=== PATIENT | female | born 1985 | race Hispanic/Latino ===

== ENCOUNTER 2020-02-13 06:07 | Inpatient (IN) | payer OTHER, SELFPAY ==
[2020-02-13] VITALS (17 sets, daily range): BP systolic 100–133; BP diastolic 59–98; PULSE 64–116; RESP 16; TEMP 36.6–36.8; O2SAT 100; BMI 34.0
--- NOTE | 2020-02-13 06:24 | PM.IMHP ---
H&P: HPI History of Present Illness Date/Time: 02/13/20 06:24 Chief complaint: Induction of Labor Narrative: Vicki Corrigan is a 34 year old female is admitted for for medical induction of labor. Her last menstrual period was 05/11/2019, EDC is 02/15 20. Making her a short a 40 weeks gestation. Her cervix is favorable. She is negative for group B strep Review of Systems Review of Systems: All systems reviewed & are unremarkable except as noted in HPI and below PMFSH Family History Family History Other No pertinent family history Social History Social History Substance use: never Gender identity (if verbalized by the patient): Female Spiritual care concerns: No Meds Home Medications and Allergies Home Medications Medication Instructions Recorded Confirmed Type PNV cmb#95-ferrous fumarate-FA 1 tablet PO DAILY 01/30/20 01/30/20 History [] Allergies Allergy/AdvReac Type Severity Reaction Status Date / Time No Known Allergies Allergy Verified 01/30/20 14:39 Exam Const: General: no acute distress Eyes: General: appearance normal, both eyes and all related structures Neck: Neck: supple and no JVD Thyroid: thyroid normal Resp: Effort & Inspection: normal respiratory effort Auscultation: clear to auscultation bilaterally Cardio: Rate: regular rate Rhythm: regular rhythm GI: Inspection: non-distended GI Palp: Yes Soft to palpation, No Tenderness to palpation present (GI) and No Guarding due to palpation present (GI) Auscultation: normal bowel sounds : Speculum Exam - Cervix: normal appearance of the cervix ( cervix 3cm. FHTs reassuring) Skin: General skin exam: no rashes or lesions noted Extrem: General: normal to inspection and no edema Psych: Mental Status: mental status grossly normal Affect: normal affect Assessment and Plan Additional Plan impression: Term Plan: Medical lateral labor
--- NOTE | 2020-02-13 06:30 | PM.OBPNVD ---
OB - PN: Subj Subjective Date/time seen: 02/13/20 06:30 cx 3-4/75/-1 arom light [facility] fhts ok OB - PN A/P Time Spent With Patient Time: Total time spent is greater than 50% in coordination of care (as documented) at patient's floor/unit and/or counseling patient:
[2020-02-13 06:59] LABS: Basophils Percent Auto 0.1 % (0.2-1.2); Eosinophils Absolute Auto 0.1 K/mm3 (0-0.3); Eosinophils Percent Auto 1.3 % (0-4.4); Hemoglobin 11.4 g/dL (12.0-15.0); Immature Granulocyte Absolute 0.18 K/mm3 (0.00-0.031); Immature Granulocyte Percent A 2.3 % (0-0.5); Lymphocytes Absolute Auto 2.33 K/mm3 (0.9-3.2); Lymphocytes Percent Auto 29.4 % (18.3-44.2); Mean Corpuscular HGB Conc 34.5 g/dl (32-36); Mean Corpuscular Hemoglobin 30.5 pg (26-34); Mean Corpuscular Volume 88.2 fl (80-100); Monocytes Absolute Auto 0.6 K/mm3 (0.1-0.6); Monocytes Percent Auto 6.9 % (2.6-8.5); Neutrophils Absolute Auto 4.8 K/mm3 (1.3-6.7); Platelet Count Result 176 k/mm3 (150-375); Red Blood Count 3.74 M/mm3 (4.2-5.4); Red Cell Distribution Width 13.9 % (11.5-14.5); White Blood Count 7.9 K/mm3 (4.5-10.0)
[2020-02-13] MEDS: LACTATED RINGERS 1,000 ML 125 ML IV CONT (07:10)
[2020-02-13] MEDS: OXYTOCIN 30 UNITS/NS 500 ML 30 UNITS/500 ML BAG IV CONT (07:11)
--- NOTE | 2020-02-13 09:19 | PM.OBPRVD ---
OB - Delivery Note Procedure Delivery date: 02/13/20 Intrapartal events: None Induction method: AROM Delivery augmentation: pitocin Delivery monitor: external FHT Route of delivery: Episiotomy description: None Laceration description: None Specimen: No Estimated blood loss (mL): 57 Anesthesia type: None Disposition: floor Baby Date of : 02/13/20 Time of : 09:09 Weeks of gestation at delivery: 40 Infant gender: Male presentation: vertex position: Right Occiput Anterior Placenta delivery description: Spontaneous cord vessel description: 3 Vessels score one minute: 9 score five minutes: 9
[2020-02-13 10:01] LABS: Rapid Plasma Reagin Non-Reactive (NonReactive)
[2020-02-13] MEDS: OXYTOCIN 30 UNITS/NS 500 ML 30 UNITS/500 ML BAG 125 UNITS IV CONT (10:25)
[2020-02-13] MEDS: METHYLERGONOVINE MALEATE 0.2 MG/ML VIAL IM (10:25)
--- NOTE | 2020-02-13 10:41 | P.PNOB_ITS ---
OB - PN: Subj Subjective Date/time seen: 02/13/20 10:41 patient had an episode of acute bleeding. This was calculated at 300 cc. She responded to adding Pitocin to the IV and at dose of Methergine. Her bleeding is presently okay. We will watch her closely OB - PN: Obj Data Labs CBC & Chem 7: 02/13/20 06:33 Labs: Laboratory Results - last 24 hr 02/13/20 02/13/20 02/13/20 06:33 06:33 06:33 WBC 7.9 RBC 3.74 L Hgb 11.4 L Hct 33.0 L MCV 88.2 MCH 30.5 MCHC 34.5 RDW 13.9 Plt Count 176 MPV 11.0 H Immature Gran % (Auto) 2.3 H Neut % (Auto) 60.0 Lymph % (Auto) 29.4 [place] % (Auto) 6.9 Eos % (Auto) 1.3 Baso % (Auto) 0.1 L Lymph # (Auto) 2.33 [place] # (Auto) 0.6 Eos # (Auto) 0.1 Baso # (Auto) 0.0 Abs Immat Gran (auto) 0.18 H Absolute Neuts (auto) 4.8 Absolute Nucleated RBC 0.0 Nucleated RBC % 0.0 RPR Non-reactive Blood Type O Positive Antibody Screen Negative OB - PN A/P Time Spent With Patient Time: Total time spent is greater than 50% in coordination of care (as documented) at patient's floor/unit and/or counseling patient:
[2020-02-13] MEDS: IBUPROFEN 600 MG TABLET PO ×2 (10:43→17:00)
--- NOTE | 2020-02-13 11:45 | PC.NURSE ---
Patient transferred to post room #287 per wheelchair from labor and delivery. Support person present. Oriented to unit, room, information board, rooming in, admission packet and security measures. Patient verbalizes understanding.
[2020-02-13] MEDS: ACETAMINOPHEN 325 MG TABLET 650 MG PO (12:12)
[2020-02-14] MEDS: IBUPROFEN 600 MG TABLET PO ×2 (05:08→14:35)
[2020-02-14 06:01] LABS: Hematocrit 32.3 % (37.0-47.0)
[2020-02-14] MEDS: DOCUSATE SODIUM 100 MG CAPSULE PO (07:49)
[2020-02-14] MEDS: MULTIVIT/MIN/PREN/FOL AC/IRON TABLET 1 TAB PO (07:49)
[2020-02-14 08:00] VITALS: BP 101/48; PULSE 72; RESP 18; TEMP 36.9; O2SAT 100
--- NOTE | 2020-02-14 12:13 | PM.OBPNVD ---
OB - PN: Subj Subjective Date/time seen: 02/14/20 12:13 Narrative: Pain OK. Would like to go home. OB - PN: Obj Data Labs CBC & Chem 7: 02/14/20 04:20 Labs: Laboratory Results - last 24 hr 02/14/20 04:20 Hgb 11.0 L Hct 32.3 L OB - PN A/P Plan Comments: A: PPD#1, doing well. P: Routine care. Home to f/u 6 weeks. Exam Psych: Other: AVSS ABD soft, nontender, fundus firm EXT nontender
--- NOTE | 2020-02-14 12:14 | PM.OBDSVD ---
DS: Admitting Diagnosis Admitting Diagnosis Admitting Diagnosis: Induction of Labor DS: Discharge Diagnosis Discharge Diagnosis (1) (normal spontaneous vaginal delivery): Code(s): O80 - Encounter for full-term uncomplicated delivery Status: Acute OB - DS: Summary OB Procedures : None OB Procedures Intrapartum: Spontaneous Vag Delivery OB Procedures: : None DS: Data Data Completed and Pending Labs on day of discharge: Labs from last 24 hours 02/14/20 04:20 Hgb 11.0 L Hct 32.3 L Discharge Plan Discharge Attending physician on discharge: Gustavo Weiner Discharging Clinician: Chele Fleming Patient Disposition: Home, Self-Care Activity: pelvic rest Diet: regular Discharge Instructions: Call or return if temperature above 100.4? F, increased abdominal pain, increased vaginal bleeding or any new problems. Stand Alone Forms: General Discharge Information Follow-up/Referrals: Gustavo Weiner MD [Physician] - (6weeks) Discharge Medications: New ibuprofen 600 mg tablet 600 mg PO Q6H PRN (Reason: cramps) Qty: 30 RF: 0 hydrocortisone [Anusol-HC] 2.5 % cream with perineal applicator 1 applic RECTAL BID PRN (Reason: hemorrhoids) Qty: 30 RF: 0 No Action PNV cmb#95-ferrous fumarate-FA [] 28 mg iron- 800 mcg Tablet 1 tablet PO DAILY RF: 0 Date of admission: 02/13/20 06:07 Primary Care Provider: PHYSICIAN NOT ON STAFF,NONSTAFF Admitting Provider: Gustavo Weiner Attending physician on admission: Gustavo Weiner
--- NOTE | 2020-02-14 14:08 | PC.NURSE ---
Self care and infant care discharge instructions given including follow up visit date and time. Mother verbalized understanding. No questions or concerns voiced. Very pleasant and cooperative.
[2020-02-14] MEDS: TETANUS,DIPHTHERIA,AC PERTUSSIS ADULT (0.5 ML) BOOSTRIX IM (14:34)
[2020-02-16 11:46] VITALS: BP 115/77; PULSE 76; RESP 20; TEMP 37.3
== END 2020-02-14 15:04 | disposition home or self-care (01) | DRG 560 ==
LOC: ANHOB2 02-14 14:11 → ANHLDR 02-17 11:00 → ANHOB2 02-17 11:00
PROVIDERS: Admitting Provider Obstetrics & Gynecology; Visit Provider Obstetrics & Gynecology
DX: O72.1 Other immediate postpartum hemorrhage (principal); Z37.0 Single live birth; Z3A.40 40 weeks gestation of pregnancy
CPT/HCPCS: 36415; 85014; 85018; 85025; 86592; 86850; 86900; 86901; 90715; A9270; J2210; J2590; J7120

== ENCOUNTER 2021-01-26 17:28 | Emergency (ER) | payer OTHER, SELFPAY ==
[2021-01-26 17:57] VITALS: BP 99/64; PULSE 89; RESP 16; TEMP 37.1; O2SAT 100
--- NOTE | 2021-01-26 18:32 | ED.EAR ---
HPI - Ear Problem General Chief complaint: Ear Stated complaint: right ear pain Time Seen by Provider: 01/26/21 18:25 Source: RN notes reviewed History of Present Illness HPI Narrative: Patient presents to emergency department from home for right ear pain. Patient states pain began last night. States that they have been swimming a lot frequently and last night she had taken a shower she states she had for like she had some water near and had used a Q-tip states she thinks she had some mild discomfort prior to using the Q-tip but had more discomfort in the evening following the use of the Q-tip she denies any bleeding or drainage from the ear she denies any rhinorrhea sore throat fever or any other symptoms states she has been taking ibuprofen at home for the pain Related Data Allergies Allergy/AdvReac Type Severity Reaction Status Date / Time No Known Allergies Allergy Verified 01/26/21 18:26 Review of Systems Review of Systems: Gen.: Denies fevers or chills Eyes: Denies eye pain or visual change ENT: See HPI Respiratory: Denies shortness of breath or cough CV: Denies chest pain GI: Denies abdominal pain nausea, emesis Musculoskeletal: Denie neck pain Neuro: Denies headache Skin: Denies rash Except as documented, all other systems reviewed and negative [facility] Past Medical History Medical History (Updated 01/26/21 @ 18:34 by Leon Rankin DO) Patient denies significant medical history Family History Family History Other No pertinent family history Social History Social History Smoking status: Never smoker Second hand tobacco smoke exposure: No Substance use: never Gender identity (if verbalized by the patient): Female Spiritual care concerns: No Exam Narrative: APPEARANCE: No acute distress, nontoxic, resting in bed EYES: EOMI HEENT: Normocephalic, atraumatic, OMM left TM is normal in appearance the right TM is erythematous no perforation seen nares patent no mucosa moist erythema exudate posterior pharynx RESPIRATORY: No respiratory distress MUSCULOSKELETAl: Moves all extremities. NEURO: Awake and alert. Following commands, speech normal, no focal deficits SKIN:: Warm, dry. No rashes lesions or abrasions PSYCHIATRIC: Normal affect/mood, Course Course Emergency Course: Discussed with patient results of workup and diagnosis. Discussed need for follow-up with primary care, proper use of medication, and reasons to return to the emergency department. Patient understands and agrees to current treatment plan Vital Signs Vital signs: Vital Signs Temperature 98.8 F 01/26/21 17:57 Pulse Rate 89 01/26/21 17:57 Respiratory Rate 16 01/26/21 17:57 Blood Pressure 99/64 L 01/26/21 17:57 Pulse Oximetry 100 01/26/21 17:57 Temperature 98.8 F 01/26/21 17:57 Pulse Rate 89 01/26/21 17:57 Respiratory Rate 16 01/26/21 17:57 Blood Pressure 99/64 L 01/26/21 17:57 Pulse Oximetry 100 01/26/21 17:57 Medical Decision Making Vital Signs Vital Signs: Vital Signs Temperature 98.8 F 01/26/21 17:57 Pulse Rate 89 01/26/21 17:57 Respiratory Rate 16 01/26/21 17:57 Blood Pressure 99/64 L 01/26/21 17:57 Pulse Oximetry 100 01/26/21 17:57 Temperature 98.8 F 01/26/21 17:57 Pulse Rate 89 01/26/21 17:57 Respiratory Rate 16 01/26/21 17:57 Blood Pressure 99/64 L 01/26/21 17:57 Pulse Oximetry 100 01/26/21 17:57 Discharge Plan Discharge Clinical Impression: Acute right otitis media Patient Disposition: Home, Self-Care Condition: Stable Instructions: Antibiotic Form, Ear Infection (ED) Additional Instructions: Return for increasing ear pain, fever or any other symptoms of concern Prescriptions: New ibuprofen [IBU] 600 mg tablet 600 mg PO Q6H PRN (Reason: pain) Qty: 20 RF: 0 amoxicillin-pot clavulanate [Augmentin]
[2021-01-26] MEDS: AMOXICILLIN/CLAVULANATE K 875-125 MG TAB 1 TABLET PO (18:35)
[2021-01-26 18:41] VITALS: BP 112/72; PULSE 77; RESP 16; O2SAT 97
== END 2021-01-26 18:45 | disposition home or self-care (01) ==
LOC: ANHED 18:42
PROVIDERS: Emergency Provider Emergency Medicine
DX: H66.91 Otitis media, unspecified, right ear (principal)
CPT/HCPCS: 99283; A9270

== ENCOUNTER 2021-02-26 08:36 | Outpatient (CLI) | payer OTHER, SELFPAY ==
--- NOTE | 2021-02-26 | ECG_ITS ---
Measurements Intervals [place] Rate: 58 P: 3 WA: 152 QRS: 27 QRSD: 77 T: 18 QT: 382 QTc: 376 Interpretive Statements SINUS BRADYCARDIA INCOMPLETE RIGHT BUNDLE BRANCH BLOCK BORDERLINE ECG Electronically Signed On 02-26-2021 11:24:19 CDT by Darell Ramírez D.O.
--- NOTE | ~2021-02-26 | XR_ITS ---
EXAMINATION: XR chest 2V 02/26/2021 09:31 INDICATION: Mid chest tightness and pressure PROCEDURE: 2 view chest COMPARISON: No prior studies for comparison. FINDINGS: The lungs are clear. The cardiomediastinal silhouette is within normal limits. There are no pleural effusions. There is no pneumothorax suspected. IMPRESSION: 1: NO ACUTE CARDIOPULMONARY DISEASE. Reviewed, dictated and finalized at location A.
[2021-02-26 09:27] LABS: Basophils Percent Auto 0.4 % (0.2-1.2); Eosinophils Absolute Auto 0.2 K/mm3 (0-0.3); Hematocrit 40.7 % (37.0-47.0); Hemoglobin 13.5 g/dL (12.0-15.0); Immature Granulocyte Absolute 0.02 K/mm3 (0.00-0.031); Immature Granulocyte Percent A 0.4 % (0-0.5); Lymphocytes Absolute Auto 1.76 K/mm3 (0.9-3.2); Lymphocytes Percent Auto 33.3 % (18.3-44.2); Mean Corpuscular HGB Conc 33.2 g/dl (32-36); Mean Corpuscular Hemoglobin 29.3 pg (26-34); Mean Corpuscular Volume 88.3 fl (80-100); Mean Platelet Volume 9.7 fl (7.4-10.4); Monocytes Absolute Auto 0.4 K/mm3 (0.1-0.6); Monocytes Percent Auto 7.2 % (2.6-8.5); Neutrophils Absolute Auto 2.9 K/mm3 (1.3-6.7); Neutrophils Percent Auto 54.7 % (45.5-73.1); Platelet Count Result 252 k/mm3 (150-375); Red Blood Count 4.61 M/mm3 (4.2-5.4); White Blood Count 5.3 K/mm3 (4.5-10.0)
[2021-02-26 09:47] LABS: Alanine Aminotransferase 37 U/L (4-35); Albumin Level 4.5 g/dL (3.5-5.1); Alkaline Phosphatase 65 U/L (38-126); Anion Gap 10 mmol/L (8-16); Aspartate Amino Transferase 27 U/L (14-36); Bilirubin,Total 0.4 mg/dL (0.2-1.3); Blood Urea Nitrogen 8 mg/dL (7-17); Calcium 9.2 mg/dL (8.4-10.2); Carbon Dioxide 23 mmol/L (22-30); Chloride 107 mmol/L (98-107); Cholesterol 142 mg/dL (0-200); Estimated Glomerular Filt Rate > 60; Glucose 106 mg/dL (65-110); HDL Direct 36 mg/dL; Potassium 3.9 mmol/L (3.4-5.0); Sodium 140 mmol/L (137-145); Triglycerides 168 mg/dL (<150)
[2021-02-26 09:58] LABS: LDL Cholesterol Direct 66 mg/dL
[2021-02-26 10:27] LABS: Free T4 Free Thyroxine 0.82 ng/mL (0.78-2.19)
== END 2021-02-26 08:37 | disposition home or self-care (01) ==
PROVIDERS: PCP Registered Nurse; Visit Provider Registered Nurse
DX: R07.89 Other chest pain (principal); K30 Functional dyspepsia
CPT/HCPCS: 36415; 71046; 80053; 80061; 84439; 84443; 85025; 93005